=== PATIENT | male | born 1935 | race Caucasian/White ===

== ENCOUNTER → 2016-05-18 | Outpatient (CLI) | payer MEDICARE ==
[~2016-05-18] MED LIST: FINA5TAB4 PO; FOLI1TAB7 PO; TPRSR/25 PO; WARF6TAB5 PO
--- NOTE | 2016-05-18 12:38 | DIAGNOSTIC IMAGING REPORT ---
MRI OF THE BRAIN WITHOUT CONTRAST CLINICAL HISTORY: Headaches. Dizziness. COMPARISON STUDY: None. TECHNIQUE: Utilizing a 1.5 Marycarmen magnet and dedicated coil, multiplanar, multiecho imaging of the brain was performed without IV contrast. FINDINGS: There are no areas of restricted diffusion. No acute intracranial hemorrhage, midline shift or mass effect is present. Ventricular system is unremarkable. The basilar cisterns are patent. There is symmetric prominence of the extra-axial spaces overlying the cerebral hemispheres which is likely due to atrophy. There are a few old lacunar infarcts within the right cerebellar hemisphere. Mild white matter T2 hyperintense foci likely reflect small vessel disease. No intracranial masses identified on this unenhanced exam. The sinuses are clear. There is no fluid within the mastoid air cells. IMPRESSION: 1. No acute intracranial findings. 2. 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 3. Prominence of the extra-axial CSF spaces which is likely due to atrophy. Electronically signed by: Valentin Ron M.D. 05/18/2016 12:36 PM
[2016-05-18 13:17] LABS: HEMATOCRIT 37.8 % (42-52); MEAN CELL VOLUME 92.9 fL (80-100); MEAN CORPUSCULAR HEMOGLOBIN 31.2 pg (25-34); MEAN CORPUSCULAR HGB CONC 33.6 g/dl (32-36); MEAN PLATELET VOLUME 10.2 fL (7.4-10.4); PLATELET COUNT 347 K/uL (130-400); RED BLOOD COUNT 4.07 M/uL (4.7-6.1)
[2016-05-18 13:28] LABS: ALT/SGPT 64 U/L (12-78); AST/SGOT 39 U/L (15-37); BLOOD UREA NITROGEN 14 mg/dl (7-18); BUN/CREATININE RATIO 14.3 (10-20); C-REACTIVE PROTEIN 5.43 mg/dl (0-0.29); CALCIUM 8.6 mg/dl (8.5-10.1); CARBON DIOXIDE 28 mmol/L (21-32); CHLORIDE 103 mmol/L (98-107); GLUCOSE 97 mg/dl (70-99); POTASSIUM 4.4 mmol/L (3.5-5.1); SODIUM 138 mmol/L (136-145)
[2016-05-18 13:38] LABS: ALB/GLOB RATIO 0.6 (0.9-2); ALKALINE PHOSPHATASE 82 U/L (45-117)
[2016-05-18 14:27] LABS: BASO ABS # 0.08 K/uL (0-0.2); BASOPHIL % 0.9 % (0-2); EOSINOPHIL % 2.7 %; LYMPH ABS # 1.53 K/uL (1.2-3.4); LYMPHOCYTE % 16.8 %; MDIFF REQUEST Y; NEUTROPHILS % 79.6 %
== END | disposition home or self-care (01) ==
LOC: C.MRI 11:13
PROVIDERS: ATTEND Nurse Practitioner Family
DX: R50.9 Fever, unspecified (principal); R51 Headache; Z86.73 Personal history of transient ischemic attack (TIA), and cerebral infarction without residual deficits; Z12.5 Encounter for screening for malignant neoplasm of prostate

== ENCOUNTER → 2016-07-17 | Outpatient (CLI) | payer MEDICARE ==
--- NOTE | 2016-07-17 11:16 | DIAGNOSTIC IMAGING REPORT ---
EXAMINATION: RENAL ULTRASOUND CLINICAL HISTORY: Benign prostatic hypertrophy, urinary retention. COMPARISON STUDY: 09/14/2013 FINDINGS: The right kidney measures 12 cm. The left kidney measures 12.2 cm. There is left-sided hydronephrosis. There are multiple right renal cysts. The largest include a 16 mm upper pole cyst and 2 cm mid to lower pole cyst. There are multiple echogenic foci within the left kidney suspicious for calculi. The prostate is enlarged. No bladder masses are visualized. The right ureteral jet was identified. The left ureteral jet was nonvisualized. IMPRESSION : 1. Left-sided nephrolithiasis 2. Mild to moderate left-sided hydronephrosis. 3. Prostamegaly 4. Nonvisualization of the left ureteral jet Electronically signed by: Bg Shelton M.D. 07/17/2016 11:14 AM Dictated Date/Time: 07/17/2016 11:12 AM
== END | disposition home or self-care (01) ==
LOC: C.ULTR 10:19
PROVIDERS: ATTEND Urology
DX: N40.0 Benign prostatic hyperplasia without lower urinary tract symptoms (principal); R33.9 Retention of urine, unspecified

== ENCOUNTER 2017-03-29 18:34 | Emergency (ER) | payer MEDICARE ==
[~2017-03-29] VITALS: Ht 179.1 cm; Wt 76.0 kg
[2017-03-29 18:41] VITALS: Ht 179.1 cm; Wt 76.0 kg
[2017-03-29] MEDS ORDERED: CEFTRIAXONE SOD INJ 2000 MG in DEXTROSE 5% 50ML IV SCH (19:15)
[2017-03-29] MEDS ORDERED: CEFTRIAXONE SOD INJ 1 GM ADDVIAL IV STA (19:15)
[2017-03-29] MEDS ORDERED: IBUPROFEN 600 MG TAB PO STA (19:15)
[2017-03-29] MEDS ORDERED: DOXYCYCLINE HYCLATE 100 MG CAP PO STA (19:30)
--- NOTE | 2017-03-29 19:38 | DIAGNOSTIC IMAGING REPORT ---
CHEST ONE VIEW PORTABLE HISTORY: 82 years-old Male Pt c/o fever acute fever. COMPARISON: Chest radiograph 05/05/2016 TECHNIQUE: Portable upright AP view of the chest FINDINGS: Cardiomediastinal and hilar silhouettes are within normal limits. There is atherosclerosis of the aorta. There is no pneumothorax, pleural effusion, focal airspace consolidation or overt pulmonary edema. Bones of the chest are grossly intact. Degenerative changes are seen within the shoulders and spine. IMPRESSION: No acute cardiopulmonary process. No lobar airspace consolidation to suggest pneumonia. The above report was generated using voice recognition software. It may contain grammatical, syntax or spelling errors. Electronically signed by: Mikey Barnes M.D. 03/29/2017 7:36 PM Dictated Date/Time: 03/29/2017 7:35 PM
[2017-03-29 20:06] VITALS: O2SAT 96
--- NOTE | 2017-03-29 20:11 | EMERGENCY ROOM VISIT NOTE ---
History Report prepared by Singh: Broderick Cueto Under the Supervision of: Dr. Alfonso Alcaraz M.D. First contact with patient: 19:10 Chief Complaint: FLU LIKE SX Stated Complaint: CHILLS,FEVER History of Present Illness The patient is an 82 year old male who presents to the Emergency Room with complaints of constant flu like symptoms starting yesterday. The patient states that he has been having fevers, chills, and body aches. The patient denies any nausea, vomiting, diarrhea, loss of appetite, cough, and runny nose. He states that he took Tylenol today around 1500, and this helped with his chills. The patient additionally notes that he has two tick bites that were about a month ago, and he states that one is still embedded in his right side. 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 Source of History: patient Onset: yesterday Position: other (global) Quality: other (flu like symptoms) Timing: constant Associated Symptoms: + fevers, + chills, No cough, No nausea, No vomiting, No diarrhea Note: Associated symptoms: Body aches. Review of Systems See HPI for pertinent positives & negatives. A total of 10 systems reviewed and were otherwise negative. Past Medical & Surgical Medical Problems: (1) Degenerative disc disease (2) DVT/PE Surgical Problems: (1) Hx of lithotripsy (2) S/P rotator cuff repair Family History Cancer Heart disease Social History Smoking Status: Never Smoker Alcohol Use: none Drug Use: none Marital Status: Housing Status: lives alone Occupation Status: retired Current/Historical Medications Scheduled Doxycycline Monohydrate (Monodox), 100 MG PO BID Finasteride (Proscar), 5 MG PO DAILY Folic Acid (Folvite), 1 MG PO DAILY Meloxicam (Mobic), 7.5 MG PO BIDM Metoprolol Succinate (Metoprolol Succinate ER), 25 MG PO DAILY Multivitamin (Multivitamin), 1 TAB PO DAILY Warfarin Sod (Jantoven), 6 MG PO DAILY Allergies Coded Allergies: No Known Allergies (Verified , 05/05/16) Physical Exam Vital Signs Date Time Temp Pulse Resp B/P (MAP) Pulse Ox O2 Delivery O2 Flow Rate FiO2 03/29/17 22:19 37.2 71 18 128/76 98 Room Air 03/29/17 20:56 38.1 74 18 151/80 97 Room Air 03/29/17 20:41 74 03/29/17 20:06 96 Room Air 03/29/17 18:41 38.8 73 18 176/96 97 Room Air Physical Exam GENERAL: Patient is a healthy-appearing well-nourished male HEAD: Normocephalic atraumatic EYES: Ocular movements intact pupils equal and react to light OROPHARYNX mucous membranes are moist no exudates present no erythema or edema present NECK: No evidence of meningitis or encephalitis on exam. Supple no nuchal rigidity CHEST: Good equal expansion LUNGS: Clear and equal to auscultation CARDIAC: Normal S1 and S2 ABDOMEN: Soft nontender no guarding BACK: No CVA tenderness EXTREMITIES: No pain upon palpation normal muscle strength in all groups no clubbing cyanosis or edema NEURO: Patient is following commands and answering questions appropriately. Alert and oriented x3 Cranial Nerves 2-12 grossly intact Medical Decision & Procedures ER Provider Diagnostic Interpretation: Radiology results as stated below per my review and radiologist interpretation: CHEST ONE VIEW PORTABLE HISTORY: 82 years-old Male Pt c/o fever acute fever. COMPARISON: Chest radiograph 05/05/2016 TECHNIQUE: Portable upright AP view of the chest FINDINGS: Cardiomediastinal and hilar silhouettes are within normal limits. There is atherosclerosis of the aorta. There is no pneumothorax, pleural effusion, focal airspace consolidation or overt pulmonary edema. Bones of the chest are grossly intact. Degenerative changes are seen within the shoulders and spine. IMPRESSION: No acute cardiopulmonary process. No lobar airspace consolidation to suggest pneumonia. The above report was generated using voice recognition software. It may contain grammatical, syntax or spelling errors. Electronically signed by: Mikey Barnes M.D. 03/29/2017 7:36 PM Dictated Date/Time: 03/29/2017 7:35 PM Laboratory Results 03/29/17 19:30 Red Blood Count 4.33, Mean Corpuscular Volume 94.0, Mean Corpuscular Hemoglobin 32.1, Mean Corpuscular Hemoglobin Concent 34.2, Mean Platelet Volume 10.4, Neutrophils (%) (Auto) 85.8, Lymphocytes (%) (Auto) 10.1, Monocytes (%) (Auto) 3.8, Eosinophils (%) (Auto) 0.0, Basophils (%) (Auto) 0.3, Neutrophils # (Auto) 3.42, Lymphocytes # (Auto) 0.40, Monocytes # (Auto) 0.15, Eosinophils # (Auto) 0.00, Basophils # (Auto) 0.01 03/29/17 19:30 Test 03/29/17 19:30 03/29/17 21:00 White Blood Count 3.98 K/uL (4.8-10.8) Red Blood Count 4.33 M/uL (4.7-6.1) Hemoglobin 13.9 g/dL (14.0-18.0) Hematocrit 40.7 % (42-52) Mean Corpuscular Volume 94.0 fL (80-100) Mean Corpuscular Hemoglobin 32.1 pg (25-34) Mean Corpuscular Hemoglobin Concent 34.2 g/dl (32-36) Platelet Count 93 K/uL (130-400) Mean Platelet Volume 10.4 fL (7.4-10.4) Neutrophils (%) (Auto) 85.8 % Lymphocytes (%) (Auto) 10.1 % Monocytes (%) (Auto) 3.8 % Eosinophils (%) (Auto) 0.0 % Basophils (%) (Auto) 0.3 % Neutrophils # (Auto) 3.42 K/uL (1.4-6.5) Lymphocytes # (Auto) 0.40 K/uL (1.2-3.4) Monocytes # (Auto) 0.15 K/uL (0.11-0.59) Eosinophils # (Auto) 0.00 K/uL (0-0.5) Basophils # (Auto) 0.01 K/uL (0-0.2) RDW Standard Deviation 47.1 fL (36.4-46.3) RDW Coefficient of Variation 13.6 % (11.5-14.5) Immature Granulocyte % (Auto) 0.0 % Immature Granulocyte # (Auto) 0.00 K/uL (0.00-0.02) Platelet Estimate DECREASED Prothrombin Time 19.5 SECONDS (9.0-12.0) Prothromb Time International Ratio 1.8 (0.9-1.1) Anion Gap 10.0 mmol/L (3-11) Est Creatinine Clear Calc Drug Dose 54.7 ml/min Estimated GFR () 70.8 Estimated GFR (Non- 61.1 BUN/Creatinine Ratio 16.6 (10-20) Calcium Level 8.6 mg/dl (8.5-10.1) Total Bilirubin 0.9 mg/dl (0.2-1) Direct Bilirubin 0.3 mg/dl (0-0.2) Aspartate Amino Transf (AST/SGOT) 45 U/L (15-37) Alanine Aminotransferase (ALT/SGPT) 36 U/L (12-78) Alkaline Phosphatase 82 U/L (45-117) Total Creatine Kinase 297 U/L (39-308) Creatine Kinase MB 1.5 ng/ml (0.5-3.6) Creatine Kinase MB Ratio 0.5 (0-3.0) Troponin I < 0.015 ng/ml (0-0.045) Total Protein 7.6 gm/dl (6.4-8.2) Albumin 3.6 gm/dl (3.4-5.0) Lyme Disease IgG Antibody NEG (NEG) Lyme Disease IgM Antibody NEG (NEG) Influenza Type A (RT-PCR) Neg for Influ A (NEG) Influenza Type A Antigen Neg for Influ A (NEG) Influenza Type B Antigen Neg for Influ B (NEG) Influenza Type B (RT-PCR) Neg for Influ B (NEG) Urine Color YELLOW Urine Appearance CLEAR (CLEAR) Urine pH 6.5 (4.5-7.5) Urine Specific Stella 1.019 (1.000-1.030) Urine Protein NEG (NEG) Urine Glucose (UA) NEG (NEG) Urine Ketones TRACE (NEG) Urine Occult Blood NEG (NEG) Urine Nitrite NEG (NEG) Urine Bilirubin NEG (NEG) Urine Urobilinogen NEG (NEG) Urine Leukocyte Esterase NEG (NEG) Labs reviewed by ED physician. Medications Administered Medications (Trade) Dose Ordered Sig/Malka Route Start Time Stop Time Status Last Admin Dose Admin Ibuprofen (Motrin Tab) 600 mg NOW STAT PO 03/29/17 19:15 03/29/17 19:18 DC 03/29/17 20:08 600 MG Doxycycline Hyclate (Vibramycin Cap) 100 mg ONE STAT PO 03/29/17 19:30 03/29/17 19:31 DC 03/29/17 20:07 100 MG Ceftriaxone Sodium 2000 mg/ Dextrose 70 ml @ 140 mls/hr TODAY@1915 IV 03/29/17 19:15 03/29/17 22:00 DC 03/29/17 21:04 140 MLS/HR Acetaminophen (Tylenol Tab) 1,000 mg NOW STAT PO 03/29/17 21:29 03/29/17 21:30 DC 03/29/17 21:40 1,000 MG ECG Indication: other (flu like illness) Rate (beats per minute): 75 Rhythm: normal sinus Findings: no acute ischemic change, no ectopy ED Course 1909: Past medical records reviewed. The patient was evaluated in room B6. A complete history and physical examination was performed. 1914: Ceftriaxone Sodium 2000mg/ Dextrose 70ml @ 140mls/hr IV, Ibuprofen 600mg PO 1929: Vibramycin Cap 100mg PO 2128: Tylenol Tab 1000mg PO 2229: Upon reexamination the patient is doing well. I discussed results and treatment plan with the patient. He verbalizes agreement and understanding. The patient is ready for discharge. Medical Decision Differential diagnosis: Etiologies such as viral syndrome, otitis, pharyngitis, pneumonia, influenza, meningitis, urinary tract infection, sepsis, bacteremia, as well as others were entertained. This is an 82-year-old male who presents emergency department complaining of fever. The patient reports he has had two tick bites over the past month. He is running a fever here in the emergency department. Based on these findings, the patient was given Motrin and started on Rocephin as well as doxycycline here in the emergency department. The patient does not have an elevation in his white blood count cell count and his renal profile is also normal. He does also not have any evidence of pneumonia on chest x-ray. I gave the patient the option of being admitted to the hospital however he wishes to be discharged home. I believe that this is reasonable however I stressed the need to return to the emergency department if his symptoms get worse or he is feeling weak. Patient was in agreement with the treatment plan. Medication Reconcilliation Current Medication List: was personally reviewed by me Blood Pressure Screening Patient's blood pressure: Elevated blood pressure Blood pressure disposition: Referred to PCP Impression Primary Impression: Fever Scribe Attestation The scribe's documentation has been prepared under my direction and personally reviewed by me in its entirety. I confirm that the note above accurately reflects all work, treatment, procedures, and medical decision making performed by me. Departure Information Dispostion Home / Self-Care Prescriptions Doxycycline Monohydrate (Monodox) 100 Mg Cap 100 MG PO BID for 14 Days, #28 CAP Prov: Alfonso Alcaraz MD 03/29/17 Referrals No Doctor, Assigned (PCP) Forms HOME CARE DOCUMENTATION FORM, IMPORTANT VISIT INFORMATION, School Instructions, Work Instructions Patient Instructions ED Fever Control, ED Fever Enteric, My [facility] Additional Instructions You were found to have an elevated blood pressure today (>120 sytolic or >90 diastolic). Per medicare guidelines, you need to follow up with this blood pressure screening with your Primary Care Physician (PCP). For a new PCP call [phone]. Take 1000 mg Tylenol every 6 hours Culture results are usually available in approx 48 hours You have been examined and treated today on an emergency basis only. This is not a substitute for, or an effort to provide, complete comprehensive medical care. It is impossible to recognize and treat all injuries or illnesses in a single emergency department visit. It is therefore important that you follow up closely with Dr Crawford. Call as soon as possible for an appointment. Thank you for your time and consideration. I look forward to speaking with you again soon. Please don't hesitate to call us if you have any questions. Problem Qualifiers Primary Impression: Fever Fever type: unspecified Qualified Codes: R50.9 - Fever, unspecified
[2017-03-29 20:19] LABS: INR 1.8 (0.9-1.1); PROTHROMBIN TIME (PATIENT) 19.5 SECONDS (9.0-12.0)
[2017-03-29 20:30] LABS: ALT/SGPT 36 U/L (12-78); BLOOD UREA NITROGEN 19 mg/dl (7-18); BUN/CREATININE RATIO 16.6 (10-20); CALCIUM 8.6 mg/dl (8.5-10.1); CARBON DIOXIDE 25 mmol/L (21-32); CHLORIDE 101 mmol/L (98-107); CREATININE 1.13 mg/dl (0.60-1.40); GLUCOSE 98 mg/dl (70-99); POTASSIUM 4.1 mmol/L (3.5-5.1); SODIUM 136 mmol/L (136-145)
[2017-03-29 20:35] LABS: ALKALINE PHOSPHATASE 82 U/L (45-117); AST/SGOT 45 U/L (15-37); CKMB/CK RATIO 0.5 (0-3.0)
[2017-03-29 20:38] LABS: HEMATOCRIT 40.7 % (42-52); MEAN CORPUSCULAR HEMOGLOBIN 32.1 pg (25-34); MEAN CORPUSCULAR HGB CONC 34.2 g/dl (32-36); MEAN PLATELET VOLUME 10.4 fL (7.4-10.4); PLATELET COUNT 93 K/uL (130-400); RED BLOOD COUNT 4.33 M/uL (4.7-6.1); WHITE BLOOD COUNT 3.98 K/uL (4.8-10.8)
[2017-03-29 20:39] LABS: BASO % 0.3 %; BASO ABS # 0.01 K/uL (0-0.2); COMPLETE YES; LYMPH % 10.1 %; MONO % 3.8 %; NEUT % 85.8 %; PLT ESTIMATE DECREASED
[2017-03-29 20:48] LABS: LYME DISEASE AB IGG NEG (NEG); LYME DISEASE AB IGM NEG (NEG)
[2017-03-29 21:05] LABS: INFLUENZA A PCR Neg for Influ A (NEG); INFLUENZA B PCR Neg for Influ B (NEG)
[2017-03-29] MEDS ORDERED: MELO7.5T5 PO (21:10)
[2017-03-29] MEDS ORDERED: MULT-506 PO (21:10)
[2017-03-29 21:20] LABS: URINE APPEARANCE CLEAR (CLEAR); URINE BILIRUBIN NEG (NEG); URINE COLOR YELLOW; URINE NITRITE NEG (NEG); URINE PH 6.5 (4.5-7.5); URINE SPECIFIC GRAVITY 1.019 (1.000-1.030); UROBILINOGEN NEG (NEG)
[2017-03-29] MEDS ORDERED: ACETAMINOPHEN 500 MG TAB PO STA (21:29)
[2017-03-29 21:36] LABS: MANUAL MICROSCOPIC REQUIRED? NO; REVIEW REQ? NO
[2017-03-29] MEDS ORDERED: DOXY100C76 PO (22:10)
[2017-03-29 22:19] VITALS: BP 128/76; PULSE 71; TEMP 37.2; O2SAT 98
== END 2017-03-29 22:44 | disposition home or self-care (01) ==
LOC: C.EDB 18:35
DX: R50.9 Fever, unspecified (principal); Z86.711 Personal history of pulmonary embolism; Z86.718 Personal history of other venous thrombosis and embolism; Z98.890 Other specified postprocedural states; Z79.01 Long term (current) use of anticoagulants; Z79.899 Other long term (current) drug therapy; Z80.9 Family history of malignant neoplasm, unspecified; Z82.49 Family history of ischemic heart disease and other diseases of the circulatory system

== ENCOUNTER 2022-02-27 11:45 | Observation (INO) ==
[2022-02-27] MEDS ORDERED: ERTAPENEM SODIUM 10 ML IV STA (11:55)
[2022-02-27] MEDS ORDERED: SODIUM CHLORIDE 0.9% 500 ML IV ONE (12:27)
--- NOTE | 2022-02-27 12:30 | Emergency Department Note ---
Impression & Plan Mass in rectum, Kidney stones, Hydronephrosis ED Provider Note NAME: ILDEFONSO VARGAS AGE: 87 SEX: M : 1935 ARRIVES VIA: Walk-In INFORMANT: Patient ED PROVIDER(S): Kee Tristan DO CHIEF COMPLAINT: can't have a BM HPI: Patient is an 87-year-old male who presents the ER for unable to have a bowel movement. He has a past medical history of prostate cancer previous Olivier and UTIs. He does take Coumadin. For about 4 weeks he has been having very tiny bowel movements. He notes that he has been straining to go to the bathroom. He was seen here for previous blood in his stool. Since being home he had 1 episode of bright red blood while straining. He has not had any since Wednesday. He denies any dysuria, urgency, or frequency. No other exacerbating or remitting factors. He has no pain in his abdomen. He was referred in by his PCP. ROS: See above HPI for pertinent positives & negatives. A total of 10 systems reviewed and were otherwise negative. PAST MEDICAL HISTORY:See Below PAST SURGICAL HISTORY:See Below FAMILY HISTORY:See Below SOCIAL HISTORY:See Below HOME MEDICATIONS:See Below ALLERGIES:See Below VITALS:See Below PHYSICAL EXAMINATION: GENERAL: Sitting up in bed, alert, well appearing, well nourished, no distress, non-toxic EYE EXAM: normal conjunctiva. OROPHARYNX: no exudate, no erythema, lips, buccal mucosa, and tongue normal and mucous membranes are moist NECK: supple, no nuchal rigidity, no adenopathy, non-tender LUNGS: Clear to auscultation. Normal chest wall mechanics HEART: no murmurs, S1 normal and S2 normal ABDOMEN: abdomen soft, non-tender, normo-active bowel sounds, no masses, no rebound or guarding. UPPER EXTREMITIES: upper extremities are grossly normal. LOWER EXTREMITIES: No pitting edema. NEURO EXAM: Normal sensorium, cranial nerves II-XII grossly intact, normal speech, no gross weakness of arms, no gross weakness of legs. MEDICAL DECISION MAKING: Patient is an 87-year-old male who presents ER for the boasting complaint. IV was established blood work was obtained. Labs show no significant leukocytosis or anemia. INR was therapeutic at 2.7. BMP along with LFTs bilirubin and lipase was unremarkable. UA with small amount hematuria. COVID-negative. CT abdomen pelvis just metastatic prostate cancer with a rectal mass. Discussed with Dr. Frazier and he recommends admission for scope. CT also confirmed bilateral hydro with a kidney stone in his ureter. Recommended Olivier but he declined. D/w Garcia Harp for further evaluation. Triage Nursing notes reviewed. Limited review of prior medical records performed Vital Signs: reviewed and remarkable for HTN Differential diagnosis: Differential diagnoses includes but is not limited to gastritis, peptic ulcer disease, GERD, gallbladder disease, pancreatitis, small bowel obstruction, acute coronary syndrome, pericarditis, ischemic bowel, irritable bowel disease, irritable bowel syndrome, appendicitis, diverticulitis, malignancy, hernia, urinary tract infection, torsion, perforation, trauma, infectious. ER treatment provided: See below Diagnostics interpreted by me: ECG: none Cardiac Monitoring: An order was placed for continuous cardiac monitoring. The monitor shows a rate of 55 with sinus rhythm. Laboratory studies: As stated above and show below. Imaging studies: CT as described above Consultation(s): Discussed with hospitalist for further evaluation Procedures: none Critical Care: None Past Med/Surg History Medical History BPH (benign prostatic hyperplasia) DVT (deep venous thrombosis) Factor V Leiden Surgical History H/O shoulder surgery History of hip surgery History of prostate surgery Hx of hernia repair Family History Father Heart disease Myocardial infarction Mother Cancer Grandfather Prostate cancer Myocardial infarction Hypercholesterolemia Aunt Nephrolithiasis Social History Smoking Status: Never smoker Hx Alcohol Use: Yes Alcohol type: beer Alcohol Intake Frequency Comment: ocassionally Preferred Language: Vietnamese Communication Ability: Effective Visual Impairment: Limited Hearing Ability: Use of Hearing Aid Mottler Machine Feeder Required: No Beliefs That Will Affect Care: None marital status: / Current Living Situation: Alone current occupational status: retired Feels Safe at Home: Yes caffeine: Yes Physical Activity Frequency: Daily Assistive Devices: Glasses, Hearing Aid - Left and Hearing Aid - Right Allergies Allergies Allergy/AdvReac Type Severity Reaction Status Date / Time acetaminophen [From [place]] Allergy Verified 02/07/21 08:22 etodolac Allergy Verified 02/07/21 08:22 hydrocodone [From [place]] Allergy Verified 02/07/21 08:22 Home Meds Home Medications Medication Instructions Recorded Confirmed metoprolol succinate 25 mg 25 mg PO DAILY 01/05/20 02/27/22 tablet,extended release 24 hr (Toprol XL) nifedipine 30 mg tablet,extended 30 mg PO DAILY 02/27/22 02/27/22 release 24 hr oxycodone 5 mg tablet 5 mg PO .EVERY 4-6 HOURS PRN Pain 02/27/22 02/27/22 warfarin 5 mg tablet (Jantoven) 5 mg PO DAILY 02/27/22 02/27/22 Results & Data (ED) Vital Signs Vital Signs - 24 hr 02/27/22 11:48 02/27/22 13:17 02/27/22 13:17 Temperature 36.8 C Temperature Source Temporal Artery Scan Pulse Rate 63 Pulse Rate [Finger] 50 L Respiratory Rate 17 18 Respiratory Effort / Characteristics Non-Labored Spontaneous Respiratory Depth Normal Normal Respiratory Pattern Regular Blood Pressure 160/75 H Blood Pressure [Right Arm] 153/70 H Blood Pressure Mean 103 Blood Pressure Mean [Right Arm] 97 Blood Pressure Position Sitting Pulse Oximetry 98 96 Oxygen Delivery Method Room Air Room Air Room Air Sepsis Recent Fever Within 48 Hours No Sepsis New/Unexplained Change in Mental Status No Sepsis Action Taken by Nursing No Action Required Laboratory Data Result diagrams: 02/27/22 12:15 02/27/22 12:15 Lab Results 02/27/22 02/27/22 02/27/22 Range/Units 12:15 12:15 12:15 WBC 6.50 (4.8-10.8) K/ul RBC 3.96 L (4.63-6.08) M/uL Hgb 11.9 L (14.0-18.0) g/dl Hct 36.4 L (40.1-51.0) % MCV 91.9 (80.0-100.0) fL MCH 30.1 (25.0-34.0) pg MCHC 32.7 (32.0-36.0) g/dL RDW Std Deviation 44.0 (36.4-46.3) fL RDW Coeff of Thaddeus 13.1 (11.5-14.5) % Plt Count 166 (130-400) K/uL MPV 10.3 (9.4-12.4) fL Immature Gran % (Auto) 0.5 % Neut % (Auto) 60.3 % Lymph % (Auto) 30.6 % [place] % (Auto) 7.2 % Eos % (Auto) 0.6 % Baso % (Auto) 0.8 % Neut # (Auto) 3.92 (1.4-6.5) K/uL Lymph # (Auto) 1.99 (1.2-3.4) K/uL [place] # (Auto) 0.47 (0.24-0.82) K/uL Eos # (Auto) 0.04 (0-0.50) K/uL Baso # (Auto) 0.05 (0-0.2) K/uL Immature Gran # (Auto) 0.03 H (0.00-0.02) K/uL PT 27.7 H (9.0-12.0) Seconds INR 2.7 H (0.9-1.1) Sodium 137 (136-145) mmol/L Potassium 4.1 (3.5-5.1) mmol/L Chloride 104 (98-107) mmol/L Carbon Dioxide 26 (21-32) mmol/L Anion Gap 7 (3-11) BUN 15 (6-23) mg/dl Creatinine 0.92 (0.6-1.4) mg/dl Est Cr Clr Drug Dosing 59.0 ml/min Est GFR ( Amer) 87.6 ml/min Est GFR (Non-Af Amer) 75.6 ml/min BUN/Creatinine Ratio 16.3 (10-20) Glucose 99 (70-99(Fasting)) mg/dl Calcium 8.7 (8.5-10.1) mg/dl Total Bilirubin 0.5 (0.2-1.0) mg/dl AST 21 (13-39) U/L ALT 10 (7-52) U/L Alkaline Phosphatase 89 (34-104) U/L Total Protein 7.1 (6.0-8.3) gm/dl Albumin 4.1 (3.4-5.0) gm/dl Globulin 3.0 (2.5-4.0) gm/dl Albumin/Globulin Ratio 1.4 (0.9-2) Lipase 28 (11-82) U/L Urine Color Urine Appearance (Clear) Urine pH (4.5-7.5) Ur Specific [place] (1.000-1.030) Urine Protein (Negative) Urine Glucose (UA) (Negative) Urine Ketones (Negative) Urine Blood (Negative) Urine Nitrite (Negative) Urine Bilirubin (Negative) Urine Urobilinogen (Negative) Ur Leukocyte Esterase (Negative) Urine WBC (Auto) (0-5) /hpf Urine RBC (Auto) (0-4) /hpf U Hyaline Cast (Auto) (0-5) /lpf U Epithel Cells (Auto) (0-5) /lpf Urine Bacteria (Auto) (Negative) SARS-CoV-2, RNA, NAAT (NEGATIVE) 02/27/22 02/27/22 Range/Units 15:17 15:17 WBC (4.8-10.8) K/ul RBC (4.63-6.08) M/uL Hgb (14.0-18.0) g/dl Hct (40.1-51.0) % MCV (80.0-100.0) fL MCH (25.0-34.0) pg MCHC (32.0-36.0) g/dL RDW Std Deviation (36.4-46.3) fL RDW Coeff of Thaddeus (11.5-14.5) % Plt Count (130-400) K/uL MPV (9.4-12.4) fL Immature Gran % (Auto) % Neut % (Auto) % Lymph % (Auto) % [place] % (Auto) % Eos % (Auto) % Baso % (Auto) % Neut # (Auto) (1.4-6.5) K/uL Lymph # (Auto) (1.2-3.4) K/uL [place] # (Auto) (0.24-0.82) K/uL Eos # (Auto) (0-0.50) K/uL Baso # (Auto) (0-0.2) K/uL Immature Gran # (Auto) (0.00-0.02) K/uL PT (9.0-12.0) Seconds INR (0.9-1.1) Sodium (136-145) mmol/L Potassium (3.5-5.1) mmol/L Chloride (98-107) mmol/L Carbon Dioxide (21-32) mmol/L Anion Gap (3-11) BUN (6-23) mg/dl Creatinine (0.6-1.4) mg/dl Est Cr Clr Drug Dosing ml/min Est GFR ( Amer) ml/min Est GFR (Non-Af Amer) ml/min BUN/Creatinine Ratio (10-20) Glucose (70-99(Fasting)) mg/dl Calcium (8.5-10.1) mg/dl Total Bilirubin (0.2-1.0) mg/dl AST (13-39) U/L ALT (7-52) U/L Alkaline Phosphatase (34-104) U/L Total Protein (6.0-8.3) gm/dl Albumin (3.4-5.0) gm/dl Globulin (2.5-4.0) gm/dl Albumin/Globulin Ratio (0.9-2) Lipase (11-82) U/L Urine Color Yellow Urine Appearance Clear (Clear) Urine pH 7.0 (4.5-7.5) Ur Specific [place] 1.022 (1.000-1.030) Urine Protein Negative (Negative) Urine Glucose (UA) Negative (Negative) Urine Ketones Negative (Negative) Urine Blood 2+ H (Negative) Urine Nitrite Negative (Negative) Urine Bilirubin Negative (Negative) Urine Urobilinogen Negative (Negative) Ur Leukocyte Esterase Negative (Negative) Urine WBC (Auto) 1-5 (0-5) /hpf Urine RBC (Auto) 5-10 H (0-4) /hpf U Hyaline Cast (Auto) 0 (0-5) /lpf U Epithel Cells (Auto) 5-10 H (0-5) /lpf Urine Bacteria (Auto) Negative (Negative) SARS-CoV-2, RNA, NAAT NEGATIVE (NEGATIVE) Administered Medications Discontinued Medications Ertapenem (Invanz) 10 mls @ 2 mls/min IV NOW STA Stop: 02/27/22 11:59 Last Admin: 02/27/22 12:49 Dose: Not Given Documented By: JOSR Sodium Chloride (Nss) 500 mls @ 999 mls/hr IV .Q31M ONE Stop: 02/27/22 12:57 Last Infusion: 02/27/22 13:19 Dose: 0 mls/hr Documented By: Admin: 02/27/22 12:48 Dose: 999 mls/hr Documented By: JOSR Ioversol (Ioversol 350 Mg 100ml Prefilled Syringe) 94 ml IV ONCE ONE Stop: 02/27/22 13:54 Last Admin: 02/27/22 13:53 Dose: 94 ml Documented By: EDK Imaging Data Radiologist's Impression: Abdomen/Pelvis CT 02/27/22 12:27 CT abd pelvis IV con only CLINICAL HISTORY: abd pain, constipation with one episode of hematochezia TECHNIQUE: Helical axial images of the abdomen and pelvis were obtained and displayed. Automated dose lowering techniques and/or adjustment according to patient size were utilized for this exam. This exam was performed with intravenous contrast. CT DOSE: 505.66 mGycm COMPARISON: Comparison is made to CT abdomen pelvis 02/14/2021 FINDINGS: Lower chest: Bibasilar atelectasis versus scarring is seen. Liver: Hepatic cysts are seen. Gallbladder and biliary tree: No calcified gallstones. Normal caliber wall. No intra- or extrahepatic biliary ductal dilation. Pancreas: Unremarkable, no focal lesions. Spleen: Unremarkable. Adrenals: Unremarkable. Kidneys and ureters: Bilateral hydronephrosis is seen, left greater than right. There is a 5 mm stone in the right distal ureter. No stone is seen on the left, in particular the previously noted distal ureteric stone is no longer seen, although evaluation is highly limited by streak artifact from adjacent hip arthroplasty. Nonobstructive nephrolithiasis is seen bilaterally. Bladder: Diffuse homogeneous wall thickening is seen. Reproductive organs: Prostatomegaly is seen. Bowel: Soft tissue density in the rectum is new from prior exam. There is increased surrounding vascularity and bibasilar densities concerning for enlarged perirectal lymph nodes. Diverticulosis is seen without evidence of diverticulitis. There is a moderate stool burden. The appendix is unremarkable. Lymph nodes Retroperitoneal: Enlarged lower retroperitoneal lymph nodes are seen measuring up to 16 x 27 mm to the left of the aortic bifurcation, previously measured 14 x 23 mm. Numerous subcentimeter lymph nodes are seen. Pelvic: There is an 8 mm left-sided external iliac node. Mesenteric: Unremarkable. Peritoneum: Normal. Vessels: Atherosclerotic calcifications are seen. Abdominal wall: A fat-containing umbilical hernia is seen. Bones: Patient is status post left total hip arthroplasty. There are numerous sclerotic foci in the s[place], similar in appearance to prior exam, compatible with history of prostate cancer. IMPRESSION: 1. Rectal mass and perirectal lymph node concerning for rectal cancer with mitzi metastatic disease. Interval enlargement of numerous retroperitoneal lymph nodes, concerning for metastasis. Pelvic lymph nodes are overall decreased in conspicuity. 2. Bilateral hydronephrosis. There is a right distal ureteric stone measuring 5 mm. Left hydronephrosis is greater than right, however no obstructive stone is definitely seen within the limitations of streak artifact. This may represent a recently passed stone versus chronic bladder outlet obstruction. 3. Interval stability of multiple sclerotic foci in the skeleton compatible with history of metastatic prostate cancer. 4. Moderate stool burden with diverticulosis. No evidence of fecal impaction. ACT 112: Positive. There are findings on this exam that require communication between the performing entity and the patient following Patient Test Result [place] Act [place] Act 112) guidelines. Electronically signed by: Dom Henson M.D. 02/27/2022 2:30 PM Discharge Plan Visit Data Chief Complaint: Referred by Doctor Stated Complaint: REF BY , BOWEL PROBLEMS ED Provider: Kee Tristan Discharge Problem: Mass in rectum, Kidney stones, Hydronephrosis Discharge Instructions Interventions: ED Discharge Assessment Last Done: 02/27/22 18:18 Forms Stand Alone Forms: [employer] Prescriptions Prescriptions: No Action metoprolol succinate [Toprol XL] 25 mg tablet extended release 24 hr 25 mg PO DAILY nifedipine 30 mg tablet extended release 24hr 30 mg PO DAILY warfarin [Jantoven] 5 mg tablet 5 mg PO DAILY oxycodone 5 mg tablet 5 mg PO .EVERY 4-6 HOURS PRN (Reason: Pain) Referrals Referrals: Andrez Quiroga MD [Outside Practitioners] -
[2022-02-27 12:31] LABS: Basophils # (auto) 0.05 K/uL (0-0.2); Basophils % (auto) 0.8 %; Eosinophils # (auto) 0.04 K/uL (0-0.50); Eosinophils % (auto) 0.6 %; Hematocrit (blood only) 36.4 % (40.1-51.0); Hemoglobin 11.9 g/dl (14.0-18.0); Immature Granulocytes # (auto) 0.03 K/uL (0.00-0.02); Immature Granulocytes % (auto) 0.5 %; Lymphocytes # (auto) 1.99 K/uL (1.2-3.4); Lymphocytes % (auto) 30.6 %; Mean Corpuscular Hemoglobin 30.1 pg (25.0-34.0); Mean Corpuscular Hgb Conc 32.7 g/dL (32.0-36.0); Mean Corpuscular Volume 91.9 fL (80.0-100.0); Mean Platelet Volume 10.3 fL (9.4-12.4); Monocytes # (auto) 0.47 K/uL (0.24-0.82); Monocytes % (auto) 7.2 %; Neutrophils # (auto) 3.92 K/uL (1.4-6.5); Neutrophils % (auto) 60.3 %; Platelet Count 166 K/uL (130-400); RDW Coefficient of Variation 13.1 % (11.5-14.5); Red Blood Count 3.96 M/uL (4.63-6.08)
[2022-02-27 12:56] LABS: Albumin Globulin Ratio 1.4 (0.9-2); Albumin Level 4.1 gm/dl (3.4-5.0); BUN Creatinine Ratio 16.3 (10-20); Bilirubin,Total 0.5 mg/dl (0.2-1.0); Calcium 8.7 mg/dl (8.5-10.1); Est GFR (African American) 87.6 ml/min; Est GFR (Non-African American) 75.6 ml/min; Potassium 4.1 mmol/L (3.5-5.1); Total Protein 7.1 gm/dl (6.0-8.3)
[2022-02-27 13:13] LABS: INR 2.7 (0.9-1.1); Prothrombin Time 27.7 Seconds (9.0-12.0)
[2022-02-27] MEDS ORDERED: IOVERSOL 350 MG 100mL Prefilled Syringe IV ONE (13:53)
--- NOTE | 2022-02-27 14:32 | CT Scan Report ---
CT abd pelvis IV con only CLINICAL HISTORY: abd pain, constipation with one episode of hematochezia TECHNIQUE: Helical axial images of the abdomen and pelvis were obtained and displayed. Automated dose lowering techniques and/or adjustment according to patient size were utilized for this exam. This e xam was performed with intravenous contrast. CT DOSE: 505.66 mGycm COMPARISON: Comparison is made to CT abdomen pelvis 02/14/2021 FINDINGS: Lower chest: Bibasilar atelectasis versus scarring is seen. Liver: Hepatic cysts are seen. Gallbladder and biliary tree: No calcified gallstones. Normal caliber wall. No intra- or extrahepatic biliary ductal dilation. Pancreas: Unremarkable, no focal lesions. Spleen: Unremarkable. Adrenals: Unremarkable. Kidneys and ureters: Bilateral hydronephrosis is seen, left greater than right. There is a 5 mm stone in the right distal ureter. No stone is seen on the left, in particular the previously noted distal ureteric stone is no longer seen, although evaluation is highly limited by streak artifact from adjac ent hip arthroplasty. Nonobstructive nephrolithiasis is seen bilaterally. Bladder: Diffuse homogeneous wall thickening is seen. Reproductive organs: Prostatomegaly is seen. Bowel: Soft tissue density in the rectum is new from prior exam. There is increased surrounding vascu larity and bibasilar densities concerning for enlarged perirectal lymph nodes. Diverticulosis is seen without evidence of diverticulitis. There is a moderate stool burden. The appendix is unremarkable. Lymph nodes Retroperitoneal: Enlarged lower retroperitoneal lymph nodes are seen measuring up to 16 x 27 mm to th e left of the aortic bifurcation, previously measured 14 x 23 mm. Numerous subcentimeter lymph nodes are seen. Pelvic: There is an 8 mm left-sided external iliac node. Mesenteric: Unremarkable. Peritoneum: Normal. Vessels: Atherosclerotic calcifications are seen. Abdominal wall: A fat-containing umbilical hernia is seen. Bones: Patient is status post left total hip arthroplasty. There are numerous sclerotic foci in the s [place], similar in appearance to prior exam, compatible with history of prostate cancer. IMPRESSION: 1. Rectal mass and perirectal lymph node concerning for rectal cancer with mitzi metastatic disease. Interval enlargement of numerous retroperitoneal lymph nodes, concerning for metastasis. Pelvic lymp h nodes are overall decreased in conspicuity. 2. Bilateral hydronephrosis. There is a right distal ureteric stone measuring 5 mm. Left hydronephro sis is greater than right, however no obstructive stone is definitely seen within the limitations of streak artifact. This may represent a recently passed stone versus chronic bladder outlet obstruction . 3. Interval stability of multiple sclerotic foci in the skeleton compatible with history of metastat ic prostate cancer. 4. Moderate stool burden with diverticulosis. No evidence of fecal impaction. ACT 112: Positive. There are findings on this exam that require communication between the performing entity and the patient following Patient Test Result [place] Act [place] Act 112) guidelines. Electronically signed by: Dom Henson M.D. 02/27/2022 2:30 PM
[2022-02-27 15:30] LABS: Appearance Urine Clear (Clear); Bacteria Urine Automated Negative (Negative); Bilirubin Urine Negative (Negative); Blood Urine 2+ (Negative); Cast Urine Automated 0 /lpf (0-5); Color Urine Yellow; Glucose Urine UA Negative (Negative); Ketones Urine Negative (Negative); Leukocyte Esterase Urine Negative (Negative); Nitrite Urine Negative (Negative); Protein Urine Negative (Negative); Specific Gravity Urine 1.022 (1.000-1.030); Urobilinogen Urine Negative (Negative)
--- NOTE | 2022-02-27 16:13 | History & Physical Report ---
Date of Service February 27, 2022 Assessment & Plan (1) Rectal mass: Plan: Rectal mass with constipation No leukocytosis Hemoglobin 11.9 Sodium 137, potassium 4.1, creatinine 0.92, UA uninfected appearing CTA/P: . Rectal mass and perirectal lymph node concerning for rectal cancer with mitzi metastatic disease. Interval enlargement of numerous retroperitoneal lymph nodes, concerning for metastasis. Pelvic lymph nodes are overall decreased in conspicuity. 2. Bilateral hydronephrosis. There is a right distal ureteric stone measuring 5 mm. Left hydronephrosis is greater than right, however no obstructive stone is definitely seen within the limitations of streak artifact. This may represent a recently passed stone versus chronic bladder outlet obstruction.3. Interval stability of multiple sclerotic foci in the skeleton compatible with history of metastatic prostate cancer. 4. Moderate stool burden with diverticulosis. No evidence of fecal impaction. Case was reviewed with GI Dr. Frazier by ER, patient recommended for admission rather than outpatient follow-up given other comorbidities. We will add bowel regimen, bowel prep and n.p.o. at midnight day before colonoscopy per GI availability Clears, bowel regimen at this time. If abdominal pain or signs of obstruction develop, n.p.o. at that time. Bilateral hydronephrosis, 5 mm distal ureteric stone, history of prostate cancer -creatinine normal Question chronic outlet obstructive changes versus acute obstruction With history of prostate cancer followed by urology Olivier ordered Urology consulted Hypertension Continue nifedipine 30 mg p.o. daily Continue metoprolol 25 mg p.o. daily Factor V Leiden, Hx of DVT - 2 prior clots, one after chainsaw injury to leg and 1x after shoulder surgery - Continue Warfarin 5mg daily - INR therapeutic on admission, INR daily goal 2.0-3.0 Goals of care Patient acknowledges that he was already having challenges with cancer and is not interested in additional chemotherapy/radiation. Is concerned about the potential rectal cancer noted on CT and his obstruction and would like to have initial work-up for information for this, but notes most likely he would be more interesting in pursuing quality of life goals and it is most important to live comfortably and to at home, rather than fight aggressively to extend his life at the cost of quality. He had not thought about hospice services previously, thinks the hospice philosophy might be appropriate for him pending his work-up and would be interested in meeting a palliative care provider while inpatient for more information. DNR/DNI, confirmed with patient Disposition: Medical surgical CODE STATUS: DNR/DNI Diet: Clears, bowel regimen. N.p.o. 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 Patient had deferred ureteroscopy for urinary retention as he had had minimal kidney changes and was relatively asymptomatic at his last June follow-up. Patient reports minimal bowel movements over the last 4 weeks and straining to go to the bathroom. Had 1 episode of bright red blood while straining, no bowel movement since Wednesday. "Miguel Angel" reports for 4 weeks his bowel havent been moving. Just a little air and liquid coming out. With straining 1 episode of BRBPR a few days ago last Wednesday, one prior episode 2 weeks before that, no other bleeding and no melena. No pain at any pain. Continue sto have no pain in the belly. Last normal BM was 01/29. No back or flank pain. NO pain with voiding. DOesn't have a feeling of residual urine after voiding, voids about a cup at a time with some slowing to a dribble at end but no prolonged dribbling, doesn't feel like he has to strain/push to void. No fevers, chills, or sweats but gets a little cold in general. Endorses some hot flashes when starting his prostate cancer medication, otherwise nothing recently. Appetite is good, 'actually I'm hungry!". Losing weight despite good appetite, lost ~12lbs over last 3 weeks. No chest pain or chest pressure. Some shortness of breath with exertion. No wheezing. No cough. Medical History: Reviewed Medications: Reviewed Surgical History: Reviewed Allergies: Reviewed Social History: Enjoys snuff, 1 can per day ~20 years. Rare social alcohol use. No medical marijuana. Code Status: Surrogate DM would be Connie (daughter), followed by son Joe. Rosales phone # [phone] Allergies Allergy/AdvReac Type Severity Reaction Status Date / Time acetaminophen [From [place]] Allergy Verified 02/07/21 08:22 etodolac Allergy Verified 02/07/21 08:22 hydrocodone [From [place]] Allergy Verified 02/07/21 08:22 Home Medications Medication Instructions Recorded Confirmed Type metoprolol succinate 25 mg 25 mg PO DAILY 01/05/20 02/27/22 History tablet,extended release 24 hr (Toprol XL) nifedipine 30 mg tablet,extended 30 mg PO DAILY 02/27/22 02/27/22 History release 24 hr oxycodone 5 mg tablet 5 mg PO .EVERY 4-6 HOURS PRN Pain 02/27/22 02/27/22 History warfarin 5 mg tablet (Jantoven) 5 mg PO DAILY 02/27/22 02/27/22 History Past Med/Surg History Medical History BPH (benign prostatic hyperplasia) DVT (deep venous thrombosis) Factor V Leiden Surgical History H/O shoulder surgery History of hip surgery History of prostate surgery Hx of hernia repair Family History Father Heart disease Myocardial infarction Mother Cancer Grandfather Prostate cancer Myocardial infarction Hypercholesterolemia Aunt Nephrolithiasis Social History Smoking Status: Never smoker Hx Alcohol Use: Yes Alcohol type: beer Alcohol Intake Frequency Comment: ocassionally Preferred Language: French Communication Ability: Effective Visual Impairment: Limited Hearing Ability: Use of Hearing Aid Clinical Laboratory Medical Director Required: No Beliefs That Will Affect Care: None marital status: / Current Living Situation: Alone current occupational status: retired Feels Safe at Home: Yes caffeine: Yes Physical Activity Frequency: Daily Assistive Devices: Glasses, Hearing Aid - Left and Hearing Aid - Right Review of Systems Review of Systems: All systems reviewed & are unremarkable except as noted in Subjective Physical Exam Physical Exam: General: A&Ox3. NAD. Cooperative. HEENT: Atraumatic, normocephalic. PERLAA. EoM intact. Vision/hearing intact although [place] Pulm: CTAB A&P. -wheezes, -rales, -rhonchi. Symmetrical chest rise. No increased work of breathing. No respiratory distress. Cardiac: RRR, +sm. Radial pulses intact and symmetrical. Abdominal: Nontender, nondistended, soft. BS present. Ext: Warm, dry Results & Data Results & Data ([facility]) Vital Signs (Past 12 Hours) Vital Signs Temp Pulse Pulse Resp BP BP Pulse Ox 02/27/22 13:17 02/27/22 13:17 50 L 18 153/70 H 96 02/27/22 11:48 36.8 C 63 17 160/75 H 98 O2 Del Method 02/27/22 13:17 Room Air 02/27/22 13:17 Room Air 02/27/22 11:48 Room Air PG Care Time/CCT Total # of Minutes Spent Total Time Spent with Patient: Total time spent is greater than 50% in coordination of care (as documented) at patient's floor/unit and/or counseling patient: Coding Level of Care Code 93505 Initial Inpt Care Lvl 2 Diagnoses Rectal mass K62.89 BPH (benign prostatic hypertrophy) with urinary retention N40.1; R33.8 Prostate cancer metastatic to bone C61; C79.51 Renal stone N20.0 Hydronephrosis N13.30
[2022-02-27] MEDS ORDERED: ONDANSETRON INJ 2 MG/ML 2 ML VIAL IV PRN (19:27)
[2022-02-27] MEDS ORDERED: oxyCODONE HCL IR 5 MG TAB (IMMEDIATE RELEASE) PO PRN (19:27)
[2022-02-27] MEDS ORDERED: POLYETHYLENE (MIRALAX) 17 GM PACK PO PRN (19:27)
[2022-02-27] MEDS ORDERED: MAGNESIUM HYDROXIDE SUSP 30 ML UDC PO PRN (19:27)
[2022-02-27] MEDS ORDERED: ACETAMINOPHEN 325 MG TAB PO PRN (19:27)
--- NOTE | 2022-02-28 00:36 | Communication Note ---
Date of Service: February 28, 2022 Messaged about home meds; has not taken since dinner-time 02/26/22. Ok for home HTN meds to start in AM as opposed to now. Regarding Coumadin, currently ordered for 4pm 02/28/22; will defer to day team regarding whether to hold vs heparin bridge (factor V leiden and dvt hx) in context of colonoscopy in upcoming days and most recent INR of 2.7.
[2022-02-28 07:58] LABS: Basophils # (auto) 0.04 K/uL (0-0.2); Basophils % (auto) 0.8 %; Eosinophils # (auto) 0.09 K/uL (0-0.50); Eosinophils % (auto) 1.8 %; Hemoglobin 11.4 g/dl (14.0-18.0); Immature Granulocytes # (auto) 0.02 K/uL (0.00-0.02); Immature Granulocytes % (auto) 0.4 %; Lymphocytes # (auto) 1.98 K/uL (1.2-3.4); Lymphocytes % (auto) 39.6 %; Mean Corpuscular Hemoglobin 29.9 pg (25.0-34.0); Mean Corpuscular Hgb Conc 32.6 g/dL (32.0-36.0); Mean Corpuscular Volume 91.9 fL (80.0-100.0); Mean Platelet Volume 10.6 fL (9.4-12.4); Neutrophils # (auto) 2.47 K/uL (1.4-6.5); Neutrophils % (auto) 49.4 %; Platelet Count 142 K/uL (130-400); RDW Coefficient of Variation 13.2 % (11.5-14.5); RDW Standard Deviation 44.3 fL (36.4-46.3); Red Blood Count 3.81 M/uL (4.63-6.08)
[2022-02-28 08:10] LABS: INR 2.2 (0.9-1.1); Prothrombin Time 22.5 Seconds (9.0-12.0)
[2022-02-28 08:33] LABS: Creatinine Clr Calc Pharmacy 58.3 ml/min; Est GFR (African American) 86.5 ml/min; Est GFR (Non-African American) 74.6 ml/min; Potassium 4.5 mmol/L (3.5-5.1)
[2022-02-28] MEDS ORDERED: NIFEdipine EXTENDED REL 30 MG TABCR PO SCH (09:00)
[2022-02-28] MEDS ORDERED: METOPROLOL SUCC 25MG EXT REL TAB PO SCH (09:00)
--- NOTE | 2022-02-28 09:40 | Gastrointestinal Consultation ---
Date of Consultation February 28, 2022 Assessment & Plan (1) Mass in rectum: He has a mass in rectum which, after discussion with urology, could be regrowth of prostate cancer or could be a second primary presenting as rectal cancer. He needs to decide if he wants evaluation because he tells me he doesn't want treatment. He is on warfarin and we would need to wait a few days for reversal of effects before we can do colonoscopy. After discussion with urology they feel it may be easier to do transrectal biopsies as they want to assess whether this is regrowth of prostate cancer. If biopsies suggest different cancer such as rectal cancer at least we will have the answer. They feel he needs relief from his renal stone and hydronephrosis so he will be under anesthesia then. I think this isn't an unreasonable approach. If he does go home to address this as an outpatient he should go home on miralax daily to help with bowel movements. I am happy to see him in office as an outpatient as well. Present on Admission?: Yes History of Present Illness Reason for Consultation: rectal mass Attending Physician: Kee Kwon, DO History of Present Illness 87 year old gentleman with a history of aggressive prostate cancer admitted with rectal bleeding. His main complaint is that he hasn't had a real bowel movement in four weeks. He has had two spells of rectal bleeding and, being on warfarin, he was advised to come into the hospital. CT here shows rectal mass with lymph nodes. He also has bilateral hydronephrosis. He admits he hasn't had a colonoscopy in over 20 years. The bleeding was initially dark and then red later that day and occurred at the end of January. He had another spell prior to admit. He says he feels the urge to have a bowel movement but goes and passes air and a little liquid. He is not uncomfortable in his abdomen though Allergies Allergy/AdvReac Type Severity Reaction Status Date / Time acetaminophen [From [place]] Allergy Verified 02/07/21 08:22 etodolac Allergy Verified 02/07/21 08:22 hydrocodone [From [place]] Allergy Verified 02/07/21 08:22 Home Medications Medication Instructions Recorded Confirmed Type metoprolol succinate 25 mg 25 mg PO DAILY 01/05/20 02/27/22 History tablet,extended release 24 hr (Toprol XL) nifedipine 30 mg tablet,extended 30 mg PO DAILY 02/27/22 02/27/22 History release 24 hr oxycodone 5 mg tablet 5 mg PO .EVERY 4-6 HOURS PRN Pain 02/27/22 02/27/22 History warfarin 5 mg tablet (Jantoven) 5 mg PO DAILY 02/27/22 02/27/22 History Patient History Medical History BPH (benign prostatic hyperplasia) DVT (deep venous thrombosis) Factor V Leiden Surgical History H/O shoulder surgery History of hip surgery History of prostate surgery Hx of hernia repair Family History Father Heart disease Myocardial infarction Mother Cancer Grandfather Prostate cancer Myocardial infarction Hypercholesterolemia Aunt Nephrolithiasis Social History Smoking Status: Former smoker Second Hand Exposure: No; Do You Dip or Chew Tobacco: Yes; Tobacco Cessation Education Requested by Patient: No Hx Alcohol Use: Yes Alcohol type: beer Alcohol Intake Frequency Comment: ocassionally Hx Substance Use: No Preferred Language: Malay Communication Ability: Effective Visual Impairment: Limited Hearing Ability: Use of Hearing Aid Logging Equipment Operator Required: No Beliefs That Will Affect Care: None marital status: / Current Living Situation: Alone current occupational status: retired Other Information That Helps Us Care for You: No Feels Safe at Home: Yes Safety Concerns: Feels Safe At This Time caffeine: Yes Physical Activity Frequency: Daily Assistive Devices: Denture - Upper, Glasses and Hearing Aid - Bilateral Review of Systems Review of Systems: All systems reviewed & are unremarkable except as noted in HPI & below Physical Exam Constitutional: WD/WN, vitals as above no acute distress Eyes: PERRL, conjunctivae normal, anicteric sclerae ENMT: external ear and nose normal, oropharynx normal Neck: trachea midline, no thyromegaly Respiratory: normal respiratory effort, lungs clear to auscultation Cardiovascular: RRR, no murmur, no edema Gastrointestinal (Abdomen): normal bowel sounds, soft, nontender, no hepatosplenomegaly Musculoskeletal: Extremities: no cyanosis and no clubbing Skin: no rashes, warm and dry Neurologic: PERRL, EOMI, accommodation nl, no face palsy, no dysarthria Psychiatric: Orientation: alert and oriented x 3 Results & Data ([facility]) Vital Signs (Past 12 Hours) Vital Signs Temp Pulse Resp BP Pulse Ox O2 Del Method 02/28/22 07:33 36.8 C 60 14 131/75 97 Room Air Laboratory Results 02/28/22 02/28/22 02/28/22 Range/Units 07:27 07:27 07:27 WBC 5.00 (4.8-10.8) K/ul RBC 3.81 L (4.63-6.08) M/uL Hgb 11.4 L (14.0-18.0) g/dl Hct 35.0 L (40.1-51.0) % MCV 91.9 (80.0-100.0) fL MCH 29.9 (25.0-34.0) pg MCHC 32.6 (32.0-36.0) g/dL RDW Std Deviation 44.3 (36.4-46.3) fL RDW Coeff of Thaddeus 13.2 (11.5-14.5) % Plt Count 142 (130-400) K/uL MPV 10.6 (9.4-12.4) fL Immature Gran % (Auto) 0.4 % Neut % (Auto) 49.4 % Lymph % (Auto) 39.6 % [place] % (Auto) 8.0 % Eos % (Auto) 1.8 % Baso % (Auto) 0.8 % Neut # (Auto) 2.47 (1.4-6.5) K/uL Lymph # (Auto) 1.98 (1.2-3.4) K/uL [place] # (Auto) 0.40 (0.24-0.82) K/uL Eos # (Auto) 0.09 (0-0.50) K/uL Baso # (Auto) 0.04 (0-0.2) K/uL Immature Gran # (Auto) 0.02 (0.00-0.02) K/uL PT 22.5 H (9.0-12.0) Seconds INR 2.2 H (0.9-1.1) Sodium 139 (136-145) mmol/L Potassium 4.5 (3.5-5.1) mmol/L Chloride 109 H (98-107) mmol/L Carbon Dioxide 26 (21-32) mmol/L Anion Gap 4 (3-11) BUN 13 (6-23) mg/dl Creatinine 0.93 (0.6-1.4) mg/dl Est Cr Clr Drug Dosing 58.3 ml/min Est GFR ( Amer) 86.5 ml/min Est GFR (Non-Af Amer) 74.6 ml/min BUN/Creatinine Ratio 14.0 (10-20) Glucose 84 (70-99(Fasting)) mg/dl Calcium 8.0 L (8.5-10.1) mg/dl Total Bilirubin (0.2-1.0) mg/dl AST (13-39) U/L ALT (7-52) U/L Alkaline Phosphatase (34-104) U/L Total Protein (6.0-8.3) gm/dl Albumin (3.4-5.0) gm/dl Globulin (2.5-4.0) gm/dl Albumin/Globulin Ratio (0.9-2) Lipase (11-82) U/L Urine Color Urine Appearance (Clear) Urine pH (4.5-7.5) Ur Specific [place] (1.000-1.030) Urine Protein (Negative) Urine Glucose (UA) (Negative) Urine Ketones (Negative) Urine Blood (Negative) Urine Nitrite (Negative) Urine Bilirubin (Negative) Urine Urobilinogen (Negative) Ur Leukocyte Esterase (Negative) Urine WBC (Auto) (0-5) /hpf Urine RBC (Auto) (0-4) /hpf U Hyaline Cast (Auto) (0-5) /lpf U Epithel Cells (Auto) (0-5) /lpf Urine Bacteria (Auto) (Negative) SARS-CoV-2, RNA, NAAT (NEGATIVE) 02/27/22 02/27/22 02/27/22 Range/Units 15:17 15:17 12:15 WBC (4.8-10.8) K/ul RBC (4.63-6.08) M/uL Hgb (14.0-18.0) g/dl Hct (40.1-51.0) % MCV (80.0-100.0) fL MCH (25.0-34.0) pg MCHC (32.0-36.0) g/dL RDW Std Deviation (36.4-46.3) fL RDW Coeff of Thaddeus (11.5-14.5) % Plt Count (130-400) K/uL MPV (9.4-12.4) fL Immature Gran % (Auto) % Neut % (Auto) % Lymph % (Auto) % [place] % (Auto) % Eos % (Auto) % Baso % (Auto) % Neut # (Auto) (1.4-6.5) K/uL Lymph # (Auto) (1.2-3.4) K/uL [place] # (Auto) (0.24-0.82) K/uL Eos # (Auto) (0-0.50) K/uL Baso # (Auto) (0-0.2) K/uL Immature Gran # (Auto) (0.00-0.02) K/uL PT 27.7 H (9.0-12.0) Seconds INR 2.7 H (0.9-1.1) Sodium (136-145) mmol/L Potassium (3.5-5.1) mmol/L Chloride (98-107) mmol/L Carbon Dioxide (21-32) mmol/L Anion Gap (3-11) BUN (6-23) mg/dl Creatinine (0.6-1.4) mg/dl Est Cr Clr Drug Dosing ml/min Est GFR ( Amer) ml/min Est GFR (Non-Af Amer) ml/min BUN/Creatinine Ratio (10-20) Glucose (70-99(Fasting)) mg/dl Calcium (8.5-10.1) mg/dl Total Bilirubin (0.2-1.0) mg/dl AST (13-39) U/L ALT (7-52) U/L Alkaline Phosphatase (34-104) U/L Total Protein (6.0-8.3) gm/dl Albumin (3.4-5.0) gm/dl Globulin (2.5-4.0) gm/dl Albumin/Globulin Ratio (0.9-2) Lipase (11-82) U/L Urine Color Yellow Urine Appearance Clear (Clear) Urine pH 7.0 (4.5-7.5) Ur Specific [place] 1.022 (1.000-1.030) Urine Protein Negative (Negative) Urine Glucose (UA) Negative (Negative) Urine Ketones Negative (Negative) Urine Blood 2+ H (Negative) Urine Nitrite Negative (Negative) Urine Bilirubin Negative (Negative) Urine Urobilinogen Negative (Negative) Ur Leukocyte Esterase Negative (Negative) Urine WBC (Auto) 1-5 (0-5) /hpf Urine RBC (Auto) 5-10 H (0-4) /hpf U Hyaline Cast (Auto) 0 (0-5) /lpf U Epithel Cells (Auto) 5-10 H (0-5) /lpf Urine Bacteria (Auto) Negative (Negative) SARS-CoV-2, RNA, NAAT NEGATIVE (NEGATIVE) 02/27/22 02/27/22 Range/Units 12:15 12:15 WBC 6.50 (4.8-10.8) K/ul RBC 3.96 L (4.63-6.08) M/uL Hgb 11.9 L (14.0-18.0) g/dl Hct 36.4 L (40.1-51.0) % MCV 91.9 (80.0-100.0) fL MCH 30.1 (25.0-34.0) pg MCHC 32.7 (32.0-36.0) g/dL RDW Std Deviation 44.0 (36.4-46.3) fL RDW Coeff of Thaddeus 13.1 (11.5-14.5) % Plt Count 166 (130-400) K/uL MPV 10.3 (9.4-12.4) fL Immature Gran % (Auto) 0.5 % Neut % (Auto) 60.3 % Lymph % (Auto) 30.6 % [place] % (Auto) 7.2 % Eos % (Auto) 0.6 % Baso % (Auto) 0.8 % Neut # (Auto) 3.92 (1.4-6.5) K/uL Lymph # (Auto) 1.99 (1.2-3.4) K/uL [place] # (Auto) 0.47 (0.24-0.82) K/uL Eos # (Auto) 0.04 (0-0.50) K/uL Baso # (Auto) 0.05 (0-0.2) K/uL Immature Gran # (Auto) 0.03 H (0.00-0.02) K/uL PT (9.0-12.0) Seconds INR (0.9-1.1) Sodium 137 (136-145) mmol/L Potassium 4.1 (3.5-5.1) mmol/L Chloride 104 (98-107) mmol/L Carbon Dioxide 26 (21-32) mmol/L Anion Gap 7 (3-11) BUN 15 (6-23) mg/dl Creatinine 0.92 (0.6-1.4) mg/dl Est Cr Clr Drug Dosing 59.0 ml/min Est GFR ( Amer) 87.6 ml/min Est GFR (Non-Af Amer) 75.6 ml/min BUN/Creatinine Ratio 16.3 (10-20) Glucose 99 (70-99(Fasting)) mg/dl Calcium 8.7 (8.5-10.1) mg/dl Total Bilirubin 0.5 (0.2-1.0) mg/dl AST 21 (13-39) U/L ALT 10 (7-52) U/L Alkaline Phosphatase 89 (34-104) U/L Total Protein 7.1 (6.0-8.3) gm/dl Albumin 4.1 (3.4-5.0) gm/dl Globulin 3.0 (2.5-4.0) gm/dl Albumin/Globulin Ratio 1.4 (0.9-2) Lipase 28 (11-82) U/L Urine Color Urine Appearance (Clear) Urine pH (4.5-7.5) Ur Specific [place] (1.000-1.030) Urine Protein (Negative) Urine Glucose (UA) (Negative) Urine Ketones (Negative) Urine Blood (Negative) Urine Nitrite (Negative) Urine Bilirubin (Negative) Urine Urobilinogen (Negative) Ur Leukocyte Esterase (Negative) Urine WBC (Auto) (0-5) /hpf Urine RBC (Auto) (0-4) /hpf U Hyaline Cast (Auto) (0-5) /lpf U Epithel Cells (Auto) (0-5) /lpf Urine Bacteria (Auto) (Negative) SARS-CoV-2, RNA, NAAT (NEGATIVE) Diagnostic Findings Abdomen/Pelvis CT 02/27/22 12:27 CT abd pelvis IV con only CLINICAL HISTORY: abd pain, constipation with one episode of hematochezia TECHNIQUE: Helical axial images of the abdomen and pelvis were obtained and displayed. Automated dose lowering techniques and/or adjustment according to patient size were utilized for this exam. This exam was performed with intravenous contrast. CT DOSE: 505.66 mGycm COMPARISON: Comparison is made to CT abdomen pelvis 02/14/2021 FINDINGS: Lower chest: Bibasilar atelectasis versus scarring is seen. Liver: Hepatic cysts are seen. Gallbladder and biliary tree: No calcified gallstones. Normal caliber wall. No intra- or extrahepatic biliary ductal dilation. Pancreas: Unremarkable, no focal lesions. Spleen: Unremarkable. Adrenals: Unremarkable. Kidneys and ureters: Bilateral hydronephrosis is seen, left greater than right. There is a 5 mm stone in the right distal ureter. No stone is seen on the left, in particular the previously noted distal ureteric stone is no longer seen, although evaluation is highly limited by streak artifact from adjacent hip arthroplasty. Nonobstructive nephrolithiasis is seen bilaterally. Bladder: Diffuse homogeneous wall thickening is seen. Reproductive organs: Prostatomegaly is seen. Bowel: Soft tissue density in the rectum is new from prior exam. There is increased surrounding vascularity and bibasilar densities concerning for enlarged perirectal lymph nodes. Diverticulosis is seen without evidence of diverticulitis. There is a moderate stool burden. The appendix is unremarkable. Lymph nodes Retroperitoneal: Enlarged lower retroperitoneal lymph nodes are seen measuring up to 16 x 27 mm to the left of the aortic bifurcation, previously measured 14 x 23 mm. Numerous subcentimeter lymph nodes are seen. Pelvic: There is an 8 mm left-sided external iliac node. Mesenteric: Unremarkable. Peritoneum: Normal. Vessels: Atherosclerotic calcifications are seen. Abdominal wall: A fat-containing umbilical hernia is seen. Bones: Patient is status post left total hip arthroplasty. There are numerous sclerotic foci in the s[place], similar in appearance to prior exam, compatible with history of prostate cancer. IMPRESSION: 1. Rectal mass and perirectal lymph node concerning for rectal cancer with mitzi metastatic disease. Interval enlargement of numerous retroperitoneal lymph nodes, concerning for metastasis. Pelvic lymph nodes are overall decreased in conspicuity. 2. Bilateral hydronephrosis. There is a right distal ureteric stone measuring 5 mm. Left hydronephrosis is greater than right, however no obstructive stone is definitely seen within the limitations of streak artifact. This may represent a recently passed stone versus chronic bladder outlet obstruction. 3. Interval stability of multiple sclerotic foci in the skeleton compatible with history of metastatic prostate cancer. 4. Moderate stool burden with diverticulosis. No evidence of fecal impaction. ACT 112: Positive. There are findings on this exam that require communication between the performing entity and the patient following Patient Test Result [place] Act [place] Act 112) guidelines. Electronically signed by: Dom Henson M.D. 02/27/2022 2:30 PM
[2022-02-28] MEDS ORDERED: POLYETHYLENE (MIRALAX) 17 GM PACK PO SCH ×2 (09:45→21:00)
--- NOTE | 2022-02-28 09:48 | Urology Consultation ---
Date of Consultation February 28, 2022 Assessment & Plan (1) Hydronephrosis: (2) Incomplete emptying of bladder: (3) Prostate cancer metastatic to bone: (4) History of nephrolithiasis: Plan 1. Right distal ureteral calculus Asymptomatic, this stone or calcification has been present for at least 1 year based on old CTs despite the lack of mention in the most recent report This stone can certainly be treated as an outpatient and does not require any acute intervention Creatinine stable 2. Metastatic prostate cancer Check PSA now If PSA is substantially elevated, this drastically increases the likelihood that his rectal mass is progression of prostate cancer rather than a second malignancy I was accompanied by Dr. 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 and failing treatment at present Overall, from a standpoint there is no reason he requires inpatient stay, we will arrange for outpatient follow-up Extensive chart review, lab review, and imaging review as well as discussion with GI about this case History of Present Illness Attending Physician: Kee Kwon, DO History of Present Illness 87-year-old gentleman with a history of metastatic prostate cancerinitial presentation with a PSA of approximately 1000 Has been under the care of oncology for some timeon reviewing his history with him, I am unclear if he is actively receiving hormone suppression, he reports that he had to stop his medication over the past few months? 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 Of admission now there is a question of a rectal massa second primary james barnard is certainly a possibility but it also could be progression of prostate cancer I was contacted for other reasonshe has chronic left hydro which is unchanged from prior although his last CT revealed 2 distal left ureteral calculi which are no longer present He does appear to have a right distal ureteral calculusmost interestingly, this exact calcification was present on his CT from February 2021 He may have slightly more hydronephrosis but otherwise no change He has no right-sided symptoms His creatinine is at baseline He has no hematuria or dysuria right now Allergies Allergy/AdvReac Type Severity Reaction Status Date / Time acetaminophen [From [place]] Allergy Verified 02/07/21 08:22 etodolac Allergy Verified 02/07/21 08:22 hydrocodone [From [place]] Allergy Verified 02/07/21 08:22 Home Medications Medication Instructions Recorded Confirmed Type metoprolol succinate 25 mg 25 mg PO DAILY 01/05/20 02/27/22 History tablet,extended release 24 hr (Toprol XL) nifedipine 30 mg tablet,extended 30 mg PO DAILY 02/27/22 02/27/22 History release 24 hr oxycodone 5 mg tablet 5 mg PO .EVERY 4-6 HOURS PRN Pain 02/27/22 02/27/22 History warfarin 5 mg tablet (Jantoven) 5 mg PO DAILY 02/27/22 02/27/22 History Patient History Medical History BPH (benign prostatic hyperplasia) DVT (deep venous thrombosis) Factor V Leiden Surgical History H/O shoulder surgery History of hip surgery History of prostate surgery Hx of hernia repair Family History Father Heart disease Myocardial infarction Mother Cancer Grandfather Prostate cancer Myocardial infarction Hypercholesterolemia Aunt Nephrolithiasis Social History Smoking Status: Former smoker Second Hand Exposure: No; Do You Dip or Chew Tobacco: Yes; Tobacco Cessation Education Requested by Patient: No Hx Alcohol Use: Yes Alcohol type: beer Alcohol Intake Frequency Comment: ocassionally Hx Substance Use: No Preferred Language: Sinhala Communication Ability: Effective Visual Impairment: Limited Hearing Ability: Use of Hearing Aid Showroom Consultant Required: No Beliefs That Will Affect Care: None marital status: / Current Living Situation: Alone current occupational status: retired Other Information That Helps Us Care for You: No Feels Safe at Home: Yes Safety Concerns: Feels Safe At This Time caffeine: Yes Physical Activity Frequency: Daily Assistive Devices: Denture - Upper, Glasses and Hearing Aid - Bilateral Review of Systems Constitutional: no fever, no chills and no fatigue Eyes: no worsening vision Ear, Nose, Mouth, Throat: no facial pain and no pain with swallowing Respiratory: no cough and no dyspnea Cardiovascular: no chest pain and no palpitations Gastrointestinal: Difficulty with bowel movementsblood in his stools Musculoskeletal: no back pain Integumentary: no rash and no urticaria Neurologic: no gait abnormality and no unsteadiness Psychiatric: no behavioral changes and no depression Endocrine: no fatigue Physical Exam Constitutional: well developed and well nourished Respiratory: no respiratory distress Cardiovascular: Extremities: no pedal edema Gastrointestinal (Abdomen): Inspection/Auscultation: abdomen normal to inspection Results & Data ([facility]) Vital Signs (Past 12 Hours) Vital Signs Temp Pulse Resp BP Pulse Ox O2 Del Method 02/28/22 07:33 36.8 C 60 14 131/75 97 Room Air PG Care Time/CCT Total # of Minutes Spent Total Time Spent with Patient: Total time spent is greater than 50% in coordination of care (as documented) at patient's floor/unit and/or counseling patient: Coding Level of Care Code 98687 Inpt Consult Level 5 Diagnoses Hydronephrosis N13.30 Incomplete emptying of bladder R33.9 Prostate cancer metastatic to bone C61; C79.51 History of nephrolithiasis Z87.442
--- NOTE | 2022-02-28 12:51 | Hospitalist Progress Note ---
Date of Service February 28, 2022 Assessment & Plan (1) Rectal mass: Plan: New rectal mass with constipation and hematochezia CTAP- rectal mass and perirectal lymph nodes 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 -Moderate stool burden without evidence of fecal impaction noted -GI and urology consulted and following -Mass may represent prostatic metastasis vs primary rectal cancer -If pt seeking evaluation, colonoscopy will be delayed few days for warfarin reversal -Suggesting transrectal biopsy to assess for prostatic cancer regrowth during ureteral stone treatment as outpatient -Check PSA level -Pt currently hemodynamically stable, afebrile -Given recent severe constipation 2/2 rectal mass and hematochezia, will monitor pt with aim to resolve constipation -Continue bowel regimen- Miralax, Colace, IVF Factor V Leiden, Hx of DVT - 2 prior clots, one after chainsaw injury to leg and 1x after shoulder surgery - INR 2.7 on admission - Currently holding warfarin (5 mg daily) due to impending colonoscopy - Trend INR, will initiate heparin at DVT prophylactic dose if subtherapeutic INR since pt is at high risk of clotting yet will need colonoscopy for further rectal mass evaluation Goals of care Pt not interested in additional chemotherapy/radiation but would like further workup for rectal cancer noted on CTAP - Pt more interested in prioritizing quality of life/comfort rather than pursue aggressive treatment at cost of quality of life - Palliative consult ordered at pt request Bilateral hydronephrosis, 5 mm distal ureteric stone, history of prostate cancer - Creatinine normal on admission With history of prostate cancer, question whether this is chronic outlet obstructive changes versus acute obstruction Olivier catheter placed Urology consulted -Ureteral calculus- currently asymptomatic and stable over past 1 year, can be treated as outpatient -Outpatient f/u Hypertension Continue nifedipine 30 mg p.o. daily Continue metoprolol 25 mg p.o. daily Disposition: Medical surgical CODE STATUS: DNR/DNI Diet: Clears, bowel regimen at present. NPO with bowel prep day before scope DVT prophylaxis: Anticoagulated due to INR 2.7, holding warfarin at present due to impending colonoscopy (2) BPH (benign prostatic hypertrophy) with urinary retention: (3) Prostate cancer metastatic to bone: (4) Renal stone: (5) Hydronephrosis: Admission and Anticipated Discharge Date Admission Date: February 27, 2022 Subjective No acute events overnight. Pt denies any acute complaints. States he has yet to have a BM since several weeks ago. Denies fever, chills, abdominal pain, nausea/vomiting, further hematochezia. Review of Systems Review of Systems: Per subjective Physical Exam Physical Exam: General: No acute distress HEENT: Atraumatic, normocephalic. +Hard of hearing Pulm: CTAB A&P. -wheezes, -rales, -rhonchi. Symmetrical chest rise. No increased work of breathing. No respiratory distress. Cardiac: RRR, normal S1 and S2. Abdominal: Nontender, nondistended, soft. BS present. Ext: Warm, dry Rectal: normal appearing anus, no external hemorrhoid noted, nontender to palpation, no blood noted in rectal vault Results & Data Results & Data ([facility]) Vital Signs (Past 12 Hours) Vital Signs Temp Pulse Resp BP Pulse Ox O2 Del Method 02/28/22 07:33 36.8 C 60 14 131/75 97 Room Air Resident Activity Tracking Resident Involvement: Resident Care Provided Care Provided: Adult Hospital Medicine
--- NOTE | 2022-02-28 14:26 | Discharge Summary ---
Date of Service February 28, 2022 Admission HPI Per Admitting Provider Aubrey Hung is an 87-year-old male with a past medical history of prostate adenocarcinoma with metastasis to bone on Casodex, eggroll X01/29 and 4-month Eligard, and he did not want to start Xtandi due to side effects but open in the future if he has continued problems who presents with inability to have a bowel movement. Patient had deferred ureteroscopy for urinary retention as he had had minimal kidney changes and was relatively asymptomatic at his last June follow-up. Patient reports minimal bowel movements over the last 4 weeks and straining to go to the bathroom. Had 1 episode of bright red blood while straining, no bowel movement since Wednesday. "Miguel Angel" reports for 4 weeks his bowel havent been moving. Just a little air and liquid coming out. With straining 1 episode of BRBPR a few days ago last Wednesday, one prior episode 2 weeks before that, no other bleeding and no melena. No pain at any pain. Continue sto have no pain in the belly. Last normal BM was 01/29. No back or flank pain. NO pain with voiding. DOesn't have a feeling of residual urine after voiding, voids about a cup at a time with some slowing to a dribble at end but no prolonged dribbling, doesn't feel like he has to strain/push to void. No fevers, chills, or sweats but gets a little cold in general. Endorses some hot flashes when starting his prostate cancer medication, otherwise nothing recently. Appetite is good, 'actually I'm hungry!". Losing weight despite good appetite, lost ~12lbs over last 3 weeks. No chest pain or chest pressure. Some shortness of breath with exertion. No wheezing. No cough. Medical History: Reviewed Medications: Reviewed Surgical History: Reviewed Allergies: Reviewed Social History: Enjoys snuff, 1 can per day ~20 years. Rare social alcohol use. No medical marijuana. Code Status: Surrogate DM would be Connie (daughter), followed by son Rehan. Connei phone # [phone] Admission Exam Per Admitting Provider General: A&Ox3. NAD. Cooperative. HEENT: Atraumatic, normocephalic. PERLAA. EoM intact. Vision/hearing intact although [place]. Pulm: CTAB A&P. -wheezes, -rales, -rhonchi. Symmetrical chest rise. No increased work of breathing. No respiratory distress. Cardiac: RRR, +sm. Radial pulses intact and symmetrical. Abdominal: Nontender, nondistended, soft. BS present. Ext: Warm, dry Principal Diagnosis Rectal mass, constipation Discharge Exam General: No acute distress HEENT: Atraumatic, normocephalic. +Hard of hearing Pulm: CTAB A&P. -wheezes, -rales, -rhonchi. Symmetrical chest rise. No increased work of breathing. No respiratory distress. Cardiac: RRR, normal S1 and S2. Abdominal: Nontender, nondistended, soft. BS present. Ext: Warm, dry Rectal: normal appearing anus, no external hemorrhoid noted, nontender to palpation, no blood noted in rectal vault Discharge Data Allergies Allergy/AdvReac Type Severity Reaction Status Date / Time acetaminophen [From [place]] Allergy Verified 02/07/21 08:22 etodolac Allergy Verified 02/07/21 08:22 hydrocodone [From [place]] Allergy Verified 02/07/21 08:22 Consultations 02/27/22 16:22 ED Decision to Admit Stat 02/27/22 16:35 Consult Palliative Care Routine 02/27/22 19:27 Consult Gastroenterology Routine Consult Urology Routine Ordered Studies 02/27/22 12:27 CT Abd and Pelvis [CT abd pelvis IV con only] Stat Hospital Course (1) Rectal mass: New rectal mass with constipation and hematochezia CTAP- rectal mass and perirectal lymph nodes 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 -Moderate stool burden without evidence of fecal impaction noted -GI and urology consulted and following -Mass may represent prostatic metastasis vs primary rectal cancer -Colonoscopy to be done after warfarin reversal -Suggesting transrectal biopsy to assess for prostatic cancer regrowth during ureteral stone treatment as outpatient -Pt hemodynamically stable, afebrile during hospital stay -Pt discharged with instructions to continue Miralax, hydration for bowel regimen Factor V Leiden, Hx of DVT - 2 prior clots, one after chainsaw injury to leg and 1x after shoulder surgery - INR 2.7 on admission - Pt to resume warfarin on discharge until PCP f/u to arrange for colonoscopy date and subsequent holding of warfarin/INR monitoring Goals of care Pt not interested in additional chemotherapy/radiation but would like further workup for rectal cancer noted on CTAP - Pt more interested in prioritizing quality of life/comfort rather than pursue aggressive treatment at cost of quality of life Bilateral hydronephrosis, 5 mm distal ureteric stone, history of prostate cancer - Creatinine normal on admission With history of prostate cancer, question whether this is chronic outlet obstructive changes versus acute obstruction -Ureteral calculus- currently asymptomatic and stable over past 1 year, can be treated as outpatient -Outpatient f/u (2) BPH (benign prostatic hypertrophy) with urinary retention: (3) Prostate cancer metastatic to bone: (4) Renal stone: (5) Hydronephrosis: Total Time Total Time Spent Total Time Spent (In Minutes): <30 Discharge Plan Discharge Items Patient Disposition: Home - Self-Care Reason For Visit: METS CA, HYDRO, CONSTIPATION Discharge Diagnosis: Rectal mass Activity: Per Instructions section Non-emergency contact: Primary Care Provider, Superintendent Plant and Urologist Call non-emergency contact if: you have any medication questions, your symptoms worsen, your pain is worsening and you have a fever Follow-up/Referrals: Sotero Feldman MD [Physician] - Rocco Trinh MD [Primary Care Provider] - Julia Cheema Jr, MD [Physician] - Diet: Clear liquid Addtl Attending Provider Instructions: You were admitted to the hospital for bleeding from straining and weeks of constipation. The CT scan found this to be the result of a rectal mass, which may represent cancer. This rectal mass has not been fully evaluated and may need further imaging such as colonoscopy and testing such as biopsy to determine its possible cancerous nature. You should take Miralax powder packets three times a day and drink plenty of water, as well as a mostly liquid diet, for the next few days to help treat your constipation. Do not strain for a bowel movement as this will worsen the risk of bleeding. Urology office will follow up with you to discuss treatment for the stone in your ureter. During the surgery to remove the stone, they will also take a biopsy of the rectal mass to evaluate if it's related prostate cancer metastasis. Gastroenterology will follow up with you about the colonoscopy. Please follow up with your PCP to schedule the colonoscopy. You will need to discontinue warfarin for a few days prior to the colonoscopy and have your INR levels checked to determine when it is safe to proceed with the colonoscopy. For now, continue taking your warfarin as usual and your PCP will help guide you on when to stop taking it in preparation for the colonoscopy. A discharge summary will be sent to your primary care physician to ensure continuity of care. Please bring this discharge summary with you to your next office appointment so that your provider can review it at that time. CALL 911 OR GO TO THE EMERGENCY DEPARTMENT if you experience any of the following: Sudden, severe abdominal pain or nausea/vomiting Severe chest pain, or chest pain that radiates (moves) to your jaw or arm Sudden, severe shortness of breath or difficulty breathing Thank you for allowing us to participate in your care. Pending Studies at Discharge: No Stand-Alone Forms: My [facility] Medications and DC Order Prescriptions: Continued metoprolol succinate [Toprol XL] 25 mg tablet extended release 24 hr 25 mg PO DAILY nifedipine 30 mg tablet extended release 24hr 30 mg PO DAILY warfarin [Jantoven] 5 mg tablet 5 mg PO DAILY oxycodone 5 mg tablet 5 mg PO .EVERY 4-6 HOURS PRN (Reason: Pain) Discharge Orders: Discharge Order (Routine); Ordered 02/28/22 Ordered By: Yesica Nuno/Other Patient Handouts: Anatomy of the Digestive System, Understanding Hydronephrosis Admission Data Admit Date/Time: 02/27/22 16:35 Attending Provider: Kee Kwon Admit Provider: Garcia Mujica Primary Care Provider: Rocco Trinh Other Providers: Garcia Mujica ; Andra Pascal ; Umberto Frazier ; Sotero Feldman. Other Interventions: Discharge Summary Assessment (RN) Last Done: 02/28/22 14:57 Supervising Physician Co-Signing Physician Notes I personally examined the patient and verified all cochran points of history and exam, discussed case, and agree with decision making with Dr Naqvi. Feeling okay overall. Would very much like to go home. Discussed mass, the chronic low-grade obstruction from the mass, the upstream constipation, and overall management. Explained extensively, both big picture as well as detailed utilization of MiraLAX. Patient asked very good questions and expressed a good understanding. Vitals noted, in general he is awake and alert pleasant no distress. HEENT normocephalic atraumatic mucous membranes moist. Breathing unlabored no accessory muscle use good effort. Skin shows no rashes no pallor or icterus. Neuro without focal deficits. Rectal mass and subsequent upstream constipationstable for home. Outpatient biopsy. MiraLAX discussed titration, roughly 3 times daily, dial up or down depending on results. Close outpatient follow-up. Resident Activity Tracking Resident Involvement: Resident Care Provided Care Provided: Adult Hospital Medicine
[2022-02-28] MEDS ORDERED: WARFARIN SOD 5 MG TAB PO SCH (16:00)
--- NOTE | 2022-02-28 16:26 | Billing Data ---
Date of Service February 28, 2022 Coding Level of Care Code D/C DAY MANAGEMENT <30 MINS
[2022-02-28] MEDS ORDERED: DOCUSATE SODIUM 100 MG CAP PO SCH (21:00)
== END 2022-02-28 15:39 | disposition home or self-care (01) ==
LOC: ED 11:45 → INTOOBSV 16:35 → SUATTDRO 16:35 → 3N 16:35
DX: D68.51 Activated protein C resistance; Z87.442 Personal history of urinary calculi; C61 Malignant neoplasm of prostate; Z88.5 Allergy status to narcotic agent; N20.1 Calculus of ureter; K62.89 Other specified diseases of anus and rectum; I10 Essential (primary) hypertension; Z88.8 Allergy status to other drugs, medicaments and biological substances; N13.30 Unspecified hydronephrosis; C79.51 Secondary malignant neoplasm of bone; R33.9 Retention of urine, unspecified; K59.00 Constipation, unspecified; Z87.891 Personal history of nicotine dependence; Z79.899 Other long term (current) drug therapy